=== PATIENT | female | born 1960 | race African-American/Black ===

== ENCOUNTER 2016-06-03 11:36 | Emergency (ER) | payer OTHER ==
--- NOTE | ~2016-06-03 | CR181 ---
[facility] A Service of [facility] RADIOLOGY TEXT RESULTS PATIENT: STACY SAINI LOCATION: [facility] : 58 UNIT #: [id number] AGE: [address]: Tomer Candelario MD SEX: F ORDER DR: [id number] [facility] [address] [place], [place] [address] [id number] E MR#: [id number] Acc #: [id number] NAME: STACY SAINI : 1960 SEX: F STUDY DATE/TIME: 06/03/2016 13:03 UNIT: [facility] ROOM: STUDY DESCRIPTION: CR Lumbar Spine 2 or 3 Views Attending Physician: Tomer Candelario M.D. Ordering Physician: Tomer Candelario M.D. Primary Care Physician: Clay Alvarado M.D. MEDICAL IMAGING REPORT This report is preliminary unless electronic signature is present EXAM Lumbar spine series, 06/03/2016. COMPARISON Lumbar spine series, 10/04/2015. HISTORY Pain in both hands and lower back since yesterday following fall. FINDINGS 3 views of the lumbar spine were obtained. Vertebral body heights and alignment are preserved. Endplate osteophytes are at multiple levels of the thoracolumbar spine. Facet hypertrophic changes are noted at L4-L5 and L5-S1 bilaterally. It is seen to a lesser degree at L3-L4. Pedicles are intact. It is difficult to visualize clearly the transverse process at all levels, but the visualized ones are grossly unremarkable. IMPRESSION 1. No acute displaced fracture or subluxation. 2. Multilevel anterior endplate osteophytes are noted without any significant loss of intervening disc height. Facet hypertrophic changes are noted from L3-L4 to L5-S1, worse in the lower levels. Dictated by... Russell Barbour M.D. THIS IS AN ELECTRONICALLY VERIFIED REPORT Russell Barbour M.D. at 06/04/2016 5:25 PM [facility] A Service of [facility] RADIOLOGY TEXT RESULTS PATIENT: STAC[id number] 58 UNIT #: [id number] AGE: [address]: Tomer Candelario MD SEX: F ORDER DR: Ye TD: 06/03/2016 14:54 JOB #: [id number] MEDICAL IMAGING REPORT Page 1 of 1 COPY
--- NOTE | ~2016-06-03 | CR141 ---
[facility] A Service of [facility] RADIOLOGY TEXT RESULTS PATIENT: STACY SAINI LOCATION: [facility] : 58 UNIT #: [id number] AGE: [address]: Tomer Candelario MD SEX: F ORDER DR: [id number] [facility] [address] [place], [place] [address] [id number] E MR#: [id number] Acc #: [id number] NAME: STACY SAINI : 1960 SEX: F STUDY DATE/TIME: 06/03/2016 13:05 UNIT: [facility] ROOM: STUDY DESCRIPTION: CR Hand Min 3 Views Lt Attending Physician: Tomer Candelario M.D. Ordering Physician: Tomer Candelario M.D. Primary Care Physician: Clay Alvarado M.D. MEDICAL IMAGING REPORT This report is preliminary unless electronic signature is present EXAM Left hand. HISTORY Hand pain after falling yesterday. TECHNIQUE 3 views of the hand were obtained. FINDINGS AP, lateral, and oblique projections of the hand show good mineralization with normal carpal, metacarpal, and phalangeal anatomy without indication of fracture, dislocation, or soft tissue radiopaque foreign body. IMPRESSION Normal hand. Dictated by... Domingo Treadwell M.D. THIS IS AN ELECTRONICALLY VERIFIED REPORT Domingo Treadwell M.D. at 06/03/2016 6:02 PM SHIRLEY/brittnee TD: 06/03/2016 14:43 JOB #: [id number] MEDICAL IMAGING REPORT Page 1 of 1 COPY
--- NOTE | ~2016-06-03 | CR142 ---
[facility] A Service of [facility] RADIOLOGY TEXT RESULTS PATIENT: STACY SAINI LOCATION: [facility] : 58 UNIT #: [id number] AGE: [address]: Tomer Candelario MD SEX: F ORDER DR: [id number] [facility] [address] [place], [place] [address] [id number] E MR#: [id number] Acc #: [id number] NAME: STACY SAINI : 1960 SEX: F STUDY DATE/TIME: 06/03/2016 13:04 UNIT: [facility] ROOM: STUDY DESCRIPTION: CR Hand Min 3 Views Rt Attending Physician: Tomer Candelario M.D. Ordering Physician: Tomer Candelario M.D. Primary Care Physician: Clay Alvarado M.D. MEDICAL IMAGING REPORT This report is preliminary unless electronic signature is present EXAM Right hand. HISTORY Patient fell yesterday with hand pain. TECHNIQUE 3 views of the hand were obtained. FINDINGS AP, lateral, and oblique projections of the hand show good mineralization with normal carpal, metacarpal, and phalangeal anatomy without indication of fracture, dislocation, or soft tissue radiopaque foreign body. IMPRESSION Normal hand. Dictated by... Domingo Treadwell M.D. THIS IS AN ELECTRONICALLY VERIFIED REPORT Domingo Treadwell M.D. at 06/03/2016 6:02 PM SHIRLEY/abbie TD: 06/03/2016 14:53 JOB #: [id number] MEDICAL IMAGING REPORT Page 1 of 1 COPY
[~2016-06-03 11:36] MED LIST: ACETAMINOPHEN PO; ASPIRIN PO; ATARAX PO; CERTAGEN PO; ECOTRIN81 M1 PO; FUROSEMIDE40 MG PO; GLUCOPHAGE500 MG PO; HUMALOG100 U/ML SUBQ; HYDROXYZINE HCL25 M1 PO; KCL PO; KLOR-CON PO; LANTUS100 U/ML; LANTUS100 U/ML SUBQ; LASIX PO; LEVAQUIN PO; LEVEMIR100 UNITS/ SUBQ; LIPITOR PO; LIPITOR20 MG PO; LISINOPRIL PO; LOPRESSOR PO; LORTAB 5/500 TA1 TA1 PO; LORTAB 7.51 TAB 7.5/ PO; NEURONTIN PO; NEURONTIN300 MG PO; NITROGYLCERIN SUBLINGUAL; NOVOLOG100 UNITS/ SUBQ; PRAMLINTIDE ACETATE SUBQ; PRILOSEC PO; PRINIVIL40 MG PO; RA CENTRAL VIT PO; SIMVASTATIN20 MG PO; TRICOR PO; [UNRECOGNIZED DRUG - CODE] PO; [UNRECOGNIZED DRUG - OTHER] SUBQ
== END 2016-06-03 14:01 | disposition home or self-care (01) ==
LOC: CED 11:36
DX: S60.222A Contusion of left hand, initial encounter (principal); S60.221A Contusion of right hand, initial encounter; W01.0XXA Fall on same level from slipping, tripping and stumbling without subsequent striking against object, initial encounter; Y92.009 Unspecified place in unspecified non-institutional (private) residence as the place of occurrence of the external cause; E11.9 Type 2 diabetes mellitus without complications; I10 Essential (primary) hypertension; Z91.041 Radiographic dye allergy status
CPT/HCPCS: 72100; 73130; 82947; 99284